=== PATIENT | female | born 1960 | race Caucasian/White ===

== ENCOUNTER 2023-11-27 12:51 | Outpatient (AMB) | payer BC, SELFPAY ==
--- NOTE | 2023-11-27 12:57 | MHC.OFFVIS ---
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 Allergies aspirin [From PERCODAN] Allergy (Unknown, Verified 11/27/23 13:03) TOLD NEVER TO TAKE moxifloxacin Allergy (Unknown, Verified 11/27/23 13:03) HIVES,VOMITING Penicillins [PENICILLINS] Allergy (Unknown, Verified 11/27/23 13:03) SEVERE VOMITING Sulfa (Sulfonamide Antibiotics) [SULFA(SULFONAMIDE ANTIBIOTICS)] Allergy (Unknown, Verified 11/27/23 13:03) HIVES morphine [MORPHINE] Adverse Reaction (Unknown, Verified 11/27/23 13:03) NAUSEA & VOMITING From PERCODAN Allergy (Unknown, Uncoded 07/27/20 18:29) TOLD NEVER TO TAKE HPI HPI Comments History of Present Illness Details 63 y/o female patient presents for new in-person visit for evaluation of left foot drop. Pt reports she has hx of popliteal vein thrombosis and started Eliquis August 15 2023. Left foot drop and numbness started after 1-2 months later that. She can't feel the left foot and almost had ankle sprained. She had near fall couple of times but able to catch herself. Now she uses walking sticks more than before. Left foot can be really cold at night. Her left leg feels weaker than right and numbness starts from above the knee. left is more numb than right. She does not comfortable to walk because she does not feel her feet and ground. Can have legs and foot cramping at night. Pt has hx of planter fascititis. She also has hx of sciatica, having lower back pain and knee pain. She gets cortisone injection on her both knees. PT was also evaluated by [facility]. Lumbar MRI result was degenerative disc disease, recommended cortisone injection but she did not do it. She saw chiropractor, her lower back pain has improved a little bit. No physical therapy yet. No EMG done. [facility] Social History (Updated 11/27/23 @ 13:05 by Katarzyna Guzman CMA) Alcohol intake: current Comment: on few occasions Patient Tobacco Use Status: Never used Tobacco Review of Systems Const All systems reviewed & are unremarkable except as noted in HPI and below Physical Exam Vital Signs: Last Vital Signs Temp 98 F 11/27/23 13:06 Pulse 79 11/27/23 13:06 BP 130/82 11/27/23 13:06 Pulse Ox 98 11/27/23 13:06 Oxygen Delivery Method Room Air 11/27/23 13:06 BMI result Body Mass Index 44.5 Const General: cooperative Nutritional Appearance: obese Orientation/consciousness: patient oriented x3 Limitations: other limitations (walking with walking pole) Neck Neck: Yes full ROM and Yes supple Resp Effort & Inspection: normal respiratory effort and able to speak in complete sentences Neuro General: patient oriented x3 Cranial nerves: Yes CN's II-XII intact bilaterally Cognition (Neuro): normal cognition Gait exam (Neuro): Antalgic gait present and Assisted gait required Motor exam (neuro): 5/5 motor strength present throughout Psych Appearance: grossly normal Affect: normal affect Attitude: cooperative Assessment & Plan Assessment & Plan (1) Numbness and tingling of both feet: Code(s): R20.0 - Anesthesia of skin; R20.2 - Paresthesia of skin (2) Left foot drop: Code(s): M21.372 - Foot drop, left foot Plan Advised patient to undergo EMG of bilateral lower extremities. Start physical therapy for left foot drop. Advised patient to try brace for foot drop. Orders: Orders NE electromyogram (EMG) 11/27/23 M21.372 - Foot drop, left foot, R20.0 - Anesthesia of skin, R20.2 - Paresthesia of skin PT Evaluation and Treatment 11/27/23 R20.0 - Anesthesia of skin, R20.2 - Paresthesia of skin, M21.372 - Foot drop, left foot Coding Level of Care Code New Pt Level 4 (13875) Diagnoses Numbness and tingling of both feet R20.0; R20.2 Left foot drop M21.372
[2023-11-27 13:06] VITALS: BP 130/82; PULSE 79; TEMP 36.6; O2SAT 98; BMI 44.5
== END 2023-11-27 13:52 | disposition home or self-care (01) ==
PROVIDERS: PCP Internal Medicine; Visit Provider Nurse Practitioner Family
DX: R20.0 Anesthesia of skin (principal); R20.2 Paresthesia of skin; M21.372 Foot drop, left foot
CPT/HCPCS: 99204

== ENCOUNTER → 2023-11-27 12:51 | Outpatient (BNVA) | payer BC, SELFPAY | PROVIDERS: PCP Internal Medicine; Visit Provider Nurse Practitioner Family ==

== ENCOUNTER 2024-01-01 08:48 | Outpatient (REF) | payer BC, SELFPAY ==
--- NOTE | 2024-01-01 08:52 | EMG_ITS ---
Bilateral tibial and peroneal motor studies were performed. Bilateral superficial peroneal and sural sensory studies were performed. Tibial H reflexes were obtained and paraspinal muscles were tested with a needle. Because of her body habitus, needle examination was limited. IMPRESSION: 1. Moderately severe axonal sensory motor peripheral neuropathy. 2. Chronic bilateral lower lumbar radiculopathy. MD EDUARDO Segura/KAREY / [id number]
== END 2024-01-01 08:49 | disposition home or self-care (01) ==
LOC: HO.NEURO 08:48
PROVIDERS: PCP Internal Medicine; Visit Provider Nurse Practitioner Family
DX: R20.0 Anesthesia of skin (principal); R20.2 Paresthesia of skin; M21.372 Foot drop, left foot
CPT/HCPCS: 95886; 95911